=== PATIENT | female | born 1965 | race Hispanic/Latino ===

== ENCOUNTER 2022-09-14 14:17 | Outpatient (CLI) | payer BC ==
[2022-09-14 16:15] LABS: #Basophils 0.1 10x3/uL (0.0-0.2); #Eosinphils 0.1 10x3/uL (0.0-0.5); #Monocytes 0.4 10x3/uL (0.0-1.1); #Neutrophils 4.4 10x3/uL (1.5-8.4); %Basophils 0.9 % (0.0-2.0); %Eosinophils 0.7 % (0.0-6.0); %Lymphocytes 26.6 % (18.0-47.0); %Monocytes 6.4 % (0.0-10.0); %Neutrophils 65.1 % (40.0-75.0); Hemoglobin 12.9 g/dL (12.0-15.5); Mean Corpuscular HGB CONC 31.9 g/dL (32.0-36.0); Mean Corpuscular Hemoglobin 27.6 pg (27.0-33.0); Mean Corpuscular Volume 86.5 fl (81.6-98.3); Mean Platelet Volume 9.6 fl (7.4-10.4); Platelet Count 262 10x3/uL (150-450); RBC Distribution Width 14.4 % (11.5-14.5); Red Blood Cell (RBC) Count 4.67 10x6/uL (3.90-5.03); White Blood Cell (WBC) Count 6.8 10x3/uL (3.5-10.5)
== END 2022-09-14 14:18 | disposition home or self-care (01) ==
LOC: LABBT 14:17
PROVIDERS: ATTEND Orthopaedic Surgery Hand Surgery
DX: Z01.812 Encounter for preprocedural laboratory examination (principal); M65.331 Trigger finger, right middle finger
CPT/HCPCS: 85025

== ENCOUNTER 2022-09-18 10:32 | Day surgery (SDC) | payer BC ==
[2022-09-14 15:13] VITALS: BMI 37.0
[~2022-09-18 10:32] MED LIST: CEFAZOLIN 2 GM VIAL ONE; Sodium Chloride 0.9% 100 ML BAG ONE
[2022-09-18] MEDS ORDERED: fentaNYL 50 mcg/mL 1 mL Vial ONE (11:45)
[2022-09-18] MEDS ORDERED: Bacitracin Zinc Ointment 30 gm TUBE ONE (12:00)
[2022-09-18] MEDS ORDERED: Bupivacaine PF 0.5% 30 ML VIAL ONE (12:00)
[2022-09-18] MEDS ORDERED: Ketorolac Tromethamine 30 MG/ML VIAL ONE ×2 (12:35→14:23)
[2022-09-18] MEDS ORDERED: Dexamethasone 20 MG/5 ML VIAL ONE (12:35)
[2022-09-18] MEDS ORDERED: Metoclopramide HCl 10 MG/2 ML VIAL ONE (12:35)
[2022-09-18] MEDS ORDERED: Lidocaine 1% PF 5 ML VIAL ONE (12:35)
[2022-09-18] MEDS ORDERED: Ondansetron PF 4 MG/2 ML Vial ONE (12:35)
[2022-09-18] MEDS ORDERED: PROPOFOL 200 MG/20 ML VIAL ONE (12:35)
== END 2022-09-18 15:13 | disposition home or self-care (01) ==
LOC: SDC 10:32
PROVIDERS: ATTEND Orthopaedic Surgery Hand Surgery
PROC: 0LN70ZZ Release Right Hand Tendon, Open Approach (ICD-10-PCS; principal; 2022-09-18)
DX: M65.331 Trigger finger, right middle finger (principal); G47.30 Sleep apnea, unspecified; E03.9 Hypothyroidism, unspecified; M79.7 Fibromyalgia; Z86.16 Personal history of COVID-19; Z79.890 Hormone replacement therapy; Z79.899 Other long term (current) drug therapy; Z88.2 Allergy status to sulfonamides; Z98.84 Bariatric surgery status
CPT/HCPCS: J1100; J1885; J2405; J2704; J2765; J3010; J3490; S0020

== ENCOUNTER 2024-06-01 08:18 | Outpatient (CLI) | payer BC ==
[2024-06-01 09:27] LABS: #Basophils 0.06 10x3/uL (0.0-0.2); %Basophils 1.2 % (0.0-1.0); %Eosinophils 3.6 % (0.0-10.0); %Lymphocytes 26.7 % (21.0-51.0); %Monocytes 8.3 % (0.0-10.0); Hematocrit 43.7 % (36.0-47.0); Hemoglobin 14.4 g/dL (12.0-16.0); Mean Corpuscular Hemoglobin 31.4 pg (27.0-31.0); Mean Corpuscular Volume 95.4 fL (78.0-98.0); Mean Platelet Volume 9.1 fL (7.4-10.4); Platelet Count 260 10x3/uL (130-400); RBC Distribution Width 12.7 % (11.5-14.5); Red Blood Cell (RBC) Count 4.58 mill/uL (4.20-5.40)
== END 2024-06-01 08:19 | disposition home or self-care (01) ==
LOC: LABBT 08:18
PROVIDERS: ATTEND Orthopaedic Surgery Hand Surgery
DX: Z01.818 Encounter for other preprocedural examination (principal); M65.311 Trigger thumb, right thumb
CPT/HCPCS: 85025; 93005; 93010

== ENCOUNTER 2024-06-05 06:02 | Day surgery (SDC) | payer BC ==
[2024-06-01 08:50] VITALS: BMI 33.2
[2024-06-05] MEDS ORDERED: Bacitracin Zinc Ointment 30 gm TUBE ONE (06:18)
[2024-06-05] MEDS ORDERED: Bupivacaine PF 0.5% 30 ML VIAL ONE (06:18)
[2024-06-05] MEDS ORDERED: CEFAZOLIN 2 GM VIAL ONE (07:01)
[2024-06-05] MEDS ORDERED: PROPOFOL 20 ML ONE ×2 (07:05→07:19)
[2024-06-05] MEDS ORDERED: Ketorolac Tromethamine 30 MG (1 mL) VIAL ONE (07:05)
[2024-06-05] MEDS ORDERED: Ondansetron PF 4 MG/2 ML Vial ONE (07:05)
[2024-06-05] MEDS ORDERED: Lidocaine 1% PF 5 ML VIAL ONE (07:05)
== END 2024-06-05 09:18 | disposition home or self-care (01) ==
LOC: SDC 06:02
PROVIDERS: ATTEND Orthopaedic Surgery Hand Surgery
PROC: 0LN70ZZ Release Right Hand Tendon, Open Approach (ICD-10-PCS; principal; 2024-06-05)
DX: M65.311 Trigger thumb, right thumb (principal); E78.5 Hyperlipidemia, unspecified; G43.909 Migraine, unspecified, not intractable, without status migrainosus; R73.03 Prediabetes; R63.4 Abnormal weight loss; Z68.33 Body mass index [BMI] 33.0-33.9, adult; Z87.59 Personal history of other complications of pregnancy, childbirth and the puerperium; Z88.2 Allergy status to sulfonamides
CPT/HCPCS: A6223; J0665; J1885; J2405; J2704